=== PATIENT | female | born 1935 | race Hispanic/Latino ===

== ENCOUNTER → 2022-05-13 | Outpatient (CLI) | payer OTHER, MEDICARE | END | disposition home or self-care (01) | LOC: RAH 08:52 | PROVIDERS: ATTEND Internal Medicine Gastroenterology | DX: R13.10 Dysphagia, unspecified (principal); K21.9 Gastro-esophageal reflux disease without esophagitis | CPT/HCPCS: 74240 ==

== ENCOUNTER 2022-07-27 13:08 | Inpatient (IN) | payer OTHER, MEDICARE ==
[~2022-07-27] VITALS: Ht 149.9 cm; Wt 113.2 kg
[2022-07-27 14:38] LABS: BASOPHILS % (AUTO) 0.3 % (0.0-5.0); EOSINOPHILS % (AUTO) 1.1 % (0.0-8.0); LYMPHOCYTES % (AUTO) 11.9 % (21.0-51.0); MEAN CORPUSCULAR HGB CONC 34.3 g/dL (32.0-36.0); MEAN CORPUSCULAR VOLUME 90.4 fL (79-99); MONOCYTES % (AUTO) 10.8 % (3.0-13.0); NEUTROPHILS % (AUTO) 75.6 % (40.0-77.0); PLATELET COUNT (AUTO) 274 K/uL (130-400); RED BLOOD CELL COUNT(AUTO) 3.32 MIL/uL (4.00-5.50); RED CELL DISTRIBUTION WIDTH 13.8 % (11.0-15.5); WHITE BLOOD COUNT (AUTO) 6.4 K/uL (4.8-10.8)
[2022-07-27 14:55] LABS: ALBUMIN 3.8 g/dL (3.5-5.0); CREATININE 0.7 mg/dL (0.5-1.5); POTASSIUM 3.2 mmol/L (3.5-5.1); TOTAL PROTEIN, SERUM 7.5 g/dL (6.0-8.3)
[2022-07-27 16:26] LABS: THYROID STIMULATING HORMONE 1.53 uIU/mL (0.36-3.74)
[2022-07-27 17:17] LABS: APPEARANCE,URINE CLEAR (CLEAR); BILIRUBIN,URINE NEGATIVE (NEGATIVE); COLOR,URINE COLORLESS (YELLOW); GLUCOSE, URINE (UA) NEGATIVE (NEGATIVE); KETONES,URINE 10 mg/dL (NEGATIVE); LEUKOCYTE ESTERASE ,URINE NEGATIVE Leu/uL (NEGATIVE); NITRATE,URINE NEGATIVE (NEGATIVE); OCCULT BLOOD,URINE NEGATIVE (NEGATIVE); PH,URINE 7.5 (5.0-8.0); PROTEIN,URINE 50 mg/dL (NEGATIVE); UROBILINOGEN,URINE 0.2 mg/dL (0.2-1.0)
[2022-07-27 17:20] LABS: WBC,URINE 0-1 /HPF (0-1)
[2022-07-27] MEDS ORDERED: 0.9%NACL 1000ML 1,000 ML IV SCH (18:30)
[2022-07-27] MEDS ORDERED: POTASSIUM CHLORIDE 20 MEQ/100 ML BAG IV SCH (19:00)
[2022-07-27] MEDS ORDERED: MEMA28CA16 PO (19:08)
[2022-07-27] MEDS ORDERED: AMLO-257 PO (19:08)
[2022-07-27] MEDS ORDERED: METF-444 PO (19:08)
[2022-07-27] MEDS ORDERED: MECL-226 PO (19:08)
[2022-07-27] MEDS ORDERED: RANO500T2 PO (19:08)
[2022-07-27] MEDS ORDERED: METO200T49 PO (19:08)
[2022-07-27] MEDS ORDERED: FOLI1 PO (19:08)
[2022-07-27] MEDS ORDERED: OLME40TA18 PO (19:08)
[2022-07-27] MEDS ORDERED: ASPI-1197 PO (19:08)
[2022-07-27] MEDS ORDERED: TOPI25TA48 PO (19:08)
[2022-07-27 21:21] LABS: CREATININE 0.6 mg/dL (0.5-1.5); POTASSIUM 3.5 mmol/L (3.5-5.1)
[2022-07-28] VITALS (7 sets, daily range): BP systolic 115–179; BP diastolic 46–68
[2022-07-28] MEDS: DEXTROSE 5%-WATER 1,000 ML IV SCH ×2 (03:38→22:11)
[2022-07-28] MEDS: INSULIN HUMULIN R 100 UNIT/ML 3ML SQ SCH ×5 (06:00→23:34)
[2022-07-28 06:11] LABS: CREATININE 0.6 mg/dL (0.5-1.5)
[2022-07-28] MEDS: FAMOTIDINE 20MG VIAL IV SCH (10:10)
[2022-07-28 14:57] LABS: CREATININE 0.7 mg/dL (0.5-1.5); POTASSIUM 3.6 mmol/L (3.5-5.1)
[2022-07-28] MEDS ORDERED: LABETALOL 20MG VIAL IV PRN (18:30)
[2022-07-28] MEDS ORDERED: LABETALOL 20MG SYG IV PRN (19:30)
[2022-07-28] MEDS: CLONIDINE 0.2 MG/ 24 HR PATCH TD SCH (22:02)
[2022-07-29 03:27] VITALS: BP 185/51
[2022-07-29] MEDS: INSULIN HUMULIN R 100 UNIT/ML 3ML SQ SCH ×3 (04:58→17:58)
[2022-07-29 05:42] LABS: BASOPHILS % (AUTO) 0.3 % (0.0-5.0); EOSINOPHILS % (AUTO) 1.6 % (0.0-8.0); HEMATOCRIT 28.5 % (36-48); LYMPHOCYTES % (AUTO) 10.1 % (21.0-51.0); MEAN CORPUSCULAR HEMOGLOBIN 31.2 pg (27.0-33.0); MEAN CORPUSCULAR HGB CONC 34.7 g/dL (32.0-36.0); MEAN CORPUSCULAR VOLUME 89.9 fL (79-99); MONOCYTES % (AUTO) 12.8 % (3.0-13.0); NEUTROPHILS % (AUTO) 74.9 % (40.0-77.0); PLATELET COUNT (AUTO) 269 K/uL (130-400); RED BLOOD CELL COUNT(AUTO) 3.17 MIL/uL (4.00-5.50); RED CELL DISTRIBUTION WIDTH 13.6 % (11.0-15.5); WHITE BLOOD COUNT (AUTO) 6.3 K/uL (4.8-10.8)
[2022-07-29 06:10] LABS: CARBON DIOXIDE 26 mmol/L (21-32); CHLORIDE 98 mmol/L (101-111); CREATININE 0.7 mg/dL (0.5-1.5); GLOMERULAR FILTR. RATE CALC 84 mL/min (>60); GLUCOSE,RANDOM 128 mg/dL (70-105); POTASSIUM 3.3 mmol/L (3.5-5.1); SODIUM SERUM 132 mmol/L (136-145); UREA NITROGEN, BLOOD 10 mg/dL (7-18)
[2022-07-29 06:51] LABS: % IRON SATURATION 12.1 % (22-44)
[2022-07-29 08:00] VITALS: BP 171/53
[2022-07-29] MEDS: FAMOTIDINE 20MG VIAL IV SCH (09:46)
[2022-07-29] MEDS: CLONIDINE 0.2 MG/ 24 HR PATCH TD SCH (09:46)
[2022-07-29 12:00] VITALS: BP 176/65
[2022-07-29] MEDS ORDERED: IRON SUCROSE COMPLEX 500 MG in 0.9%NACL 50ML 50 ML IV SCH (13:00)
[2022-07-29] MEDS ORDERED: EPOETIN ALFA-EPBX (NON-ESRD) 10,000 UNIT/ML VIAL SQ SCH (13:00)
[2022-07-29] MEDS ORDERED: LORAZEPAM 2 MG/ML 1 ML VIAL IVP PRN (13:30)
[2022-07-29] MEDS ORDERED: LIDOCAINE HCL-MPF 1% 2ML VIAL IV PRN (13:30)
[2022-07-29] MEDS: POTASSIUM CHLORIDE 20MEQ/100ML 100 ML IV PRN ×2 (14:02→21:43)
[2022-07-29 16:00] VITALS: BP 160/60
[2022-07-29] MEDS: DEXTROSE 5%-WATER 1,000 ML IV SCH (18:01)
[2022-07-29 20:27] VITALS: BP 165/59
[2022-07-30] VITALS (14 sets, daily range): BP systolic 144–178; BP diastolic 54–97
[2022-07-30 03:59] LABS: BASOPHILS % (AUTO) 0.4 % (0.0-5.0); EOSINOPHILS % (AUTO) 0.4 % (0.0-8.0); HEMATOCRIT 29.2 % (36-48); LYMPHOCYTES % (AUTO) 8.9 % (21.0-51.0); MEAN CORPUSCULAR HEMOGLOBIN 31.1 pg (27.0-33.0); MEAN CORPUSCULAR HGB CONC 34.2 g/dL (32.0-36.0); MEAN CORPUSCULAR VOLUME 90.7 fL (79-99); MONOCYTES % (AUTO) 13.3 % (3.0-13.0); NEUTROPHILS % (AUTO) 76.6 % (40.0-77.0); PLATELET COUNT (AUTO) 271 K/uL (130-400); RED BLOOD CELL COUNT(AUTO) 3.22 MIL/uL (4.00-5.50); RED CELL DISTRIBUTION WIDTH 13.6 % (11.0-15.5); WHITE BLOOD COUNT (AUTO) 7.2 K/uL (4.8-10.8)
[2022-07-30 04:30] LABS: CREATININE 0.7 mg/dL (0.5-1.5); POTASSIUM 4.5 mmol/L (3.5-5.1)
[2022-07-30] MEDS: INSULIN HUMULIN R 100 UNIT/ML 3ML SQ SCH ×4 (06:00→17:05)
[2022-07-30] MEDS ORDERED: PROPOFOL 10 MG/ML 20ML VIAL IV ONE (07:01)
[2022-07-30] MEDS ORDERED: GLYCOPYRROLATE 1 MG/5 ML SYRINGE ONE (07:02)
[2022-07-30] MEDS ORDERED: CEFAZOLIN SODIUM 1 GM VIAL ONE (07:31)
[2022-07-30] MEDS ORDERED: ESMOLOL HCL 10 MG/ML 10 ML VIAL ONE (07:38)
[2022-07-30] MEDS: FAMOTIDINE 20MG VIAL IV SCH (08:56)
[2022-07-30] MEDS: CLONIDINE 0.3 MG/ 24 HR PATCH TD SCH (10:09)
[2022-07-30] MEDS: DEXTROSE 5%-WATER 1,000 ML IV SCH ×2 (11:30→22:05)
[2022-07-30] MEDS ORDERED: HYDROMORPHONE 0.5 MG SYG (0.5MG/0.5ML) IVP PRN ×2 (12:30)
[2022-07-30] MEDS ORDERED: EPOETIN ALFA-EPBX (NON-ESRD) 10,000 UNIT/ML VIAL SQ ONE (20:00)
[2022-07-30] MEDS: METOPROLOL SUCCINATE 50 MG TAB.SR.24H PO SCH (22:06)
[2022-07-30] MEDS: AMLODIPINE 5 MG TAB PO SCH (22:06)
[2022-07-30] MEDS: TOPIRAMATE 25 MG TABLET PO SCH (22:06)
[2022-07-30] MEDS: RANOLAZINE 500 MG TAB.SR.12H PO SCH (22:06)
[2022-07-31 04:17] VITALS: BP 149/54
[2022-07-31 05:36] LABS: ALBUMIN 2.9 g/dL (3.5-5.0); CREATININE 0.7 mg/dL (0.5-1.5); POTASSIUM 3.4 mmol/L (3.5-5.1); TOTAL PROTEIN, SERUM 6.3 g/dL (6.0-8.3)
[2022-07-31 05:37] LABS: % IRON SATURATION 7.3 % (22-44)
[2022-07-31] MEDS: INSULIN HUMULIN R 100 UNIT/ML 3ML SQ SCH ×4 (06:00→18:00)
[2022-07-31 08:00] VITALS: BP 149/52
[2022-07-31] MEDS: MEMANTINE HCL 5 MG TABLET PO SCH ×2 (09:23→21:19)
[2022-07-31] MEDS: FAMOTIDINE 20MG VIAL IV SCH (09:23)
[2022-07-31] MEDS: RANOLAZINE 500 MG TAB.SR.12H PO SCH ×2 (09:23→21:22)
[2022-07-31] MEDS: TOPIRAMATE 25 MG TABLET PO SCH ×2 (09:23→21:19)
[2022-07-31] MEDS: LOSARTAN 100 MG TABLET PO SCH (09:23)
[2022-07-31] MEDS: AMLODIPINE 5 MG TAB PO SCH ×2 (09:23→21:22)
[2022-07-31] MEDS: METOPROLOL SUCCINATE 50 MG TAB.SR.24H PO SCH ×2 (09:24→21:19)
[2022-07-31] MEDS: CLONIDINE 0.3 MG/ 24 HR PATCH TD SCH (10:34)
[2022-07-31 12:00] VITALS: BP 154/50
[2022-07-31 16:00] VITALS: BP_SYST 126; BP_SYST 160; BP_DIAS 50; BP_DIAS 76
[2022-07-31] MEDS ORDERED: POTASSIUM CHLORIDE 20MEQ/100ML 100 ML IV PRN (16:30)
[2022-07-31] MEDS ORDERED: KCL 20 MEQ ERTAB PO PRN (16:30)
[2022-07-31] MEDS ORDERED: LIDOCAINE HCL-MPF 1% 2ML VIAL IV PRN (16:30)
[2022-07-31] MEDS ORDERED: POTASSIUM CHLORIDE 10% ELIXIR 20 MEQ/15 ML UDCUP PO PRN (16:30)
[2022-07-31 16:40] LABS: BASOPHILS % (AUTO) 0.2 % (0.0-5.0); EOSINOPHILS % (AUTO) 1.7 % (0.0-8.0); LYMPHOCYTES % (AUTO) 3.9 % (21.0-51.0); MEAN CORPUSCULAR HGB CONC 34.3 g/dL (32.0-36.0); MEAN CORPUSCULAR VOLUME 90.4 fL (79-99); MONOCYTES % (AUTO) 6.5 % (3.0-13.0); NEUTROPHILS % (AUTO) 87.3 % (40.0-77.0); PLATELET COUNT (AUTO) 249 K/uL (130-400); RED BLOOD CELL COUNT(AUTO) 3.32 MIL/uL (4.00-5.50); RED CELL DISTRIBUTION WIDTH 13.8 % (11.0-15.5); WHITE BLOOD COUNT (AUTO) 16.4 K/uL (4.8-10.8)
[2022-07-31] MEDS ORDERED: IRON SUCROSE COMPLEX 500 MG in 0.9% NACL 250ML 250 ML IV ONE (16:45)
[2022-07-31 16:54] LABS: CREATININE 0.6 mg/dL (0.5-1.5); POTASSIUM 3.6 mmol/L (3.5-5.1)
[2022-07-31 17:53] LABS: APPEARANCE,URINE CLEAR (CLEAR); BILIRUBIN,URINE NEGATIVE (NEGATIVE); COLOR,URINE LIGHT-YELLOW (YELLOW); GLUCOSE, URINE (UA) NEGATIVE (NEGATIVE); KETONES,URINE NEGATIVE (NEGATIVE); LEUKOCYTE ESTERASE ,URINE NEGATIVE Leu/uL (NEGATIVE); NITRATE,URINE NEGATIVE (NEGATIVE); OCCULT BLOOD,URINE NEGATIVE (NEGATIVE); PROTEIN,URINE NEGATIVE (NEGATIVE); UROBILINOGEN,URINE 0.2 mg/dL (0.2-1.0)
[2022-07-31 17:57] LABS: BACTERIA,URINE RARE /HPF (None Seen); MUCUS,URINE RARE LPF (None Seen); RBC,URINE 0-1 /HPF (0-1); SQUAMOUS EPITHELIAL CELL,UR RARE /HPF (0-2); WBC,URINE 0-1 /HPF (0-1)
[2022-07-31 20:17] VITALS: BP 154/60
[2022-07-31] MEDS: FAMOTIDINE 20MG TAB PEG SCH (21:19)
[2022-07-31] MEDS: MINOXIDIL 2.5 MG TAB PO SCH (21:19)
[2022-08-01] VITALS (7 sets, daily range): BP systolic 117–151; BP diastolic 40–66
[2022-08-01 04:38] LABS: BASOPHILS % (AUTO) 0.2 % (0.0-5.0); EOSINOPHILS % (AUTO) 0.9 % (0.0-8.0); HEMATOCRIT 29.9 % (36-48); LYMPHOCYTES % (AUTO) 3.7 % (21.0-51.0); MEAN CORPUSCULAR HEMOGLOBIN 30.9 pg (27.0-33.0); MEAN CORPUSCULAR HGB CONC 34.1 g/dL (32.0-36.0); MEAN CORPUSCULAR VOLUME 90.6 fL (79-99); MONOCYTES % (AUTO) 6.9 % (3.0-13.0); NEUTROPHILS % (AUTO) 87.6 % (40.0-77.0); PLATELET COUNT (AUTO) 259 K/uL (130-400); WHITE BLOOD COUNT (AUTO) 16.2 K/uL (4.8-10.8)
[2022-08-01 04:57] LABS: CREATININE 0.7 mg/dL (0.5-1.5); MAGNESIUM 1.7 mg/dL (1.80-2.40); PHOSPHORUS 2.7 mg/dL (2.5-4.9); POTASSIUM 3.8 mmol/L (3.5-5.1)
[2022-08-01] MEDS: INSULIN HUMULIN R 100 UNIT/ML 3ML SQ SCH ×4 (06:00→18:00)
[2022-08-01] MEDS: AMLODIPINE 5 MG TAB PO SCH ×2 (09:12→21:17)
[2022-08-01] MEDS: LOSARTAN 100 MG TABLET PO SCH (09:12)
[2022-08-01] MEDS: TOPIRAMATE 25 MG TABLET PO SCH ×2 (09:13→21:17)
[2022-08-01] MEDS: METOPROLOL SUCCINATE 50 MG TAB.SR.24H PO SCH ×2 (09:13→21:17)
[2022-08-01] MEDS: MINOXIDIL 2.5 MG TAB PO SCH ×2 (09:13→21:17)
[2022-08-01] MEDS: RANOLAZINE 500 MG TAB.SR.12H PO SCH ×2 (09:13→21:17)
[2022-08-01] MEDS: MEMANTINE HCL 5 MG TABLET PO SCH ×2 (09:13→21:17)
[2022-08-01] MEDS ORDERED: METO50TA9 PO (15:44)
[2022-08-01] MEDS ORDERED: MINO2.5 PO (15:44)
[2022-08-01] MEDS ORDERED: RENAL DOSE IV SCH (17:00)
[2022-08-01] MEDS ORDERED: CEFAZOLIN SODIUM 2 GM VIAL ONE (17:45)
[2022-08-01] MEDS: CEFAZOLIN SODIUM 2 GM VIAL IVP SCH (18:29)
[2022-08-01] MEDS: FAMOTIDINE 20MG TAB PEG SCH (21:17)
[2022-08-02] MEDS: CEFAZOLIN SODIUM 2 GM VIAL IVP SCH ×4 (02:10→23:54)
[2022-08-02 03:41] VITALS: BP 121/49
[2022-08-02 04:27] LABS: BASOPHILS % (AUTO) 0.3 % (0.0-5.0); EOSINOPHILS % (AUTO) 1.3 % (0.0-8.0); HEMATOCRIT 27.9 % (36-48); LYMPHOCYTES % (AUTO) 5.6 % (21.0-51.0); MEAN CORPUSCULAR HEMOGLOBIN 31.1 pg (27.0-33.0); MEAN CORPUSCULAR HGB CONC 34.1 g/dL (32.0-36.0); MEAN CORPUSCULAR VOLUME 91.5 fL (79-99); MONOCYTES % (AUTO) 8.4 % (3.0-13.0); NEUTROPHILS % (AUTO) 83.6 % (40.0-77.0); NUCLEATED RED BLOOD CELLS 0.1 % (0.0-0.19); PLATELET COUNT (AUTO) 264 K/uL (130-400); RED BLOOD CELL COUNT(AUTO) 3.05 MIL/uL (4.00-5.50); RED CELL DISTRIBUTION WIDTH 14.2 % (11.0-15.5); WHITE BLOOD COUNT (AUTO) 15.2 K/uL (4.8-10.8)
[2022-08-02 04:34] LABS: CREATININE 0.9 mg/dL (0.5-1.5); CRP QUANTITATIVE 112.7 mg/L (0.00-9.0); POTASSIUM 3.9 mmol/L (3.5-5.1)
[2022-08-02] MEDS: INSULIN HUMULIN R 100 UNIT/ML 3ML SQ SCH ×5 (06:00→23:54)
[2022-08-02 06:27] LABS: ERYTHROCYTE SEDIMENTATION RATE 56 MM/HR (0-30)
[2022-08-02 08:44] VITALS: BP 122/47
[2022-08-02] MEDS: AMLODIPINE 5 MG TAB PO SCH ×2 (09:00→21:32)
[2022-08-02] MEDS: LOSARTAN 100 MG TABLET PO SCH (09:00)
[2022-08-02] MEDS: MEMANTINE HCL 5 MG TABLET PO SCH ×2 (10:36→21:33)
[2022-08-02] MEDS: MINOXIDIL 2.5 MG TAB PO SCH ×2 (10:36→21:32)
[2022-08-02] MEDS: RANOLAZINE 500 MG TAB.SR.12H PO SCH ×2 (10:36→21:33)
[2022-08-02] MEDS: TOPIRAMATE 25 MG TABLET PO SCH ×2 (10:37→21:38)
[2022-08-02] MEDS: METOPROLOL SUCCINATE 50 MG TAB.SR.24H PO SCH ×2 (10:40→21:32)
[2022-08-02 12:22] VITALS: BP 130/45
[2022-08-02] MEDS: ZYVOX 600 MG TAB PEG SCH (16:32)
[2022-08-02 16:47] VITALS: BP 122/49
[2022-08-02 20:00] VITALS: BP 134/54
[2022-08-02] MEDS: FAMOTIDINE 20MG TAB PEG SCH (21:32)
[2022-08-03] VITALS: BP 123/51
[2022-08-03 04:00] VITALS: BP 128/46
[2022-08-03] MEDS: INSULIN HUMULIN R 100 UNIT/ML 3ML SQ SCH ×3 (05:14→18:00)
[2022-08-03] MEDS: ZYVOX 600 MG TAB PEG SCH ×2 (05:58→15:47)
[2022-08-03 08:00] VITALS: BP 127/48
[2022-08-03] MEDS: CEFAZOLIN SODIUM 2 GM VIAL IVP SCH ×2 (08:43→15:47)
[2022-08-03] MEDS: MINOXIDIL 2.5 MG TAB PO SCH ×2 (08:44→21:43)
[2022-08-03] MEDS: METOPROLOL SUCCINATE 50 MG TAB.SR.24H PO SCH ×2 (08:44→21:43)
[2022-08-03] MEDS: LOSARTAN 100 MG TABLET PO SCH (08:44)
[2022-08-03] MEDS: RANOLAZINE 500 MG TAB.SR.12H PO SCH ×2 (08:44→21:43)
[2022-08-03] MEDS: MEMANTINE HCL 5 MG TABLET PO SCH ×2 (08:45→21:43)
[2022-08-03] MEDS: TOPIRAMATE 25 MG TABLET PO SCH ×2 (08:45→21:43)
[2022-08-03] MEDS: AMLODIPINE 5 MG TAB PO SCH ×2 (08:45→21:43)
[2022-08-03 09:33] LABS: BASOPHILS % (AUTO) 0.4 % (0.0-5.0); EOSINOPHILS % (AUTO) 2.9 % (0.0-8.0); HEMATOCRIT 28.6 % (36-48); MEAN CORPUSCULAR HEMOGLOBIN 31.7 pg (27.0-33.0); MEAN CORPUSCULAR HGB CONC 33.9 g/dL (32.0-36.0); MEAN CORPUSCULAR VOLUME 93.5 fL (79-99); MONOCYTES % (AUTO) 9.9 % (3.0-13.0); PLATELET COUNT (AUTO) 298 K/uL (130-400); RED BLOOD CELL COUNT(AUTO) 3.06 MIL/uL (4.00-5.50); RED CELL DISTRIBUTION WIDTH 14.6 % (11.0-15.5); WHITE BLOOD COUNT (AUTO) 10.3 K/uL (4.8-10.8)
[2022-08-03 11:28] LABS: CREATININE 0.9 mg/dL (0.5-1.5); POTASSIUM 4.6 mmol/L (3.5-5.1)
[2022-08-03 12:00] VITALS: BP 110/41
[2022-08-03 20:00] VITALS: BP 143/54
[2022-08-03] MEDS ORDERED: APIXABAN 5 MG TABLET PO SCH (21:00)
[2022-08-03] MEDS: FAMOTIDINE 20MG TAB PEG SCH (21:44)
[2022-08-03] MEDS ORDERED: ENOXAPARIN SODIUM 40 MG/0.4 ML SYRINGE SQ ONE (22:00)
[2022-08-04] VITALS (7 sets, daily range): BP systolic 113–144; BP diastolic 47–57
[2022-08-04] MEDS ORDERED: HEPARIN 25,000 UNITS/250ML D5W 250 ML IV SCH
[2022-08-04] MEDS: INSULIN HUMULIN R 100 UNIT/ML 3ML SQ SCH ×4 (00:53→16:38)
[2022-08-04] MEDS: CEFAZOLIN SODIUM 2 GM VIAL IVP SCH ×3 (00:54→17:01)
[2022-08-04] MEDS: ZYVOX 600 MG TAB PEG SCH ×2 (06:20→17:01)
[2022-08-04 08:44] LABS: BASOPHILS % (AUTO) 0.3 % (0.0-5.0); EOSINOPHILS % (AUTO) 2.1 % (0.0-8.0); HEMATOCRIT 29.6 % (36-48); LYMPHOCYTES % (AUTO) 5.8 % (21.0-51.0); MEAN CORPUSCULAR HEMOGLOBIN 31.3 pg (27.0-33.0); MEAN CORPUSCULAR HGB CONC 33.1 g/dL (32.0-36.0); MEAN CORPUSCULAR VOLUME 94.6 fL (79-99); MONOCYTES % (AUTO) 11.9 % (3.0-13.0); NEUTROPHILS % (AUTO) 78.8 % (40.0-77.0); PLATELET COUNT (AUTO) 316 K/uL (130-400); RED BLOOD CELL COUNT(AUTO) 3.13 MIL/uL (4.00-5.50); RED CELL DISTRIBUTION WIDTH 14.9 % (11.0-15.5); WHITE BLOOD COUNT (AUTO) 9.1 K/uL (4.8-10.8)
[2022-08-04] MEDS: TOPIRAMATE 25 MG TABLET PO SCH ×2 (09:00→21:25)
[2022-08-04] MEDS ORDERED: ENOXAPARIN SODIUM 40 MG/0.4 ML SYRINGE SQ SCH (09:00)
[2022-08-04] MEDS ORDERED: ENOXAPARIN SODIUM 120 MG/0.8ML SQ SCH (09:00)
[2022-08-04 09:23] LABS: ALBUMIN 2.5 g/dL (3.5-5.0); CREATININE 0.9 mg/dL (0.5-1.5); MAGNESIUM 1.9 mg/dL (1.80-2.40); POTASSIUM 4.3 mmol/L (3.5-5.1); TOTAL PROTEIN, SERUM 6.2 g/dL (6.0-8.3)
[2022-08-04] MEDS: AMLODIPINE 5 MG TAB PO SCH ×2 (09:43→21:25)
[2022-08-04] MEDS: MINOXIDIL 2.5 MG TAB PO SCH ×2 (09:43→21:25)
[2022-08-04] MEDS: RANOLAZINE 500 MG TAB.SR.12H PO SCH ×2 (09:43→21:25)
[2022-08-04] MEDS: METOPROLOL SUCCINATE 50 MG TAB.SR.24H PO SCH ×2 (09:43→21:25)
[2022-08-04] MEDS: LOSARTAN 100 MG TABLET PO SCH (09:43)
[2022-08-04] MEDS: MEMANTINE HCL 5 MG TABLET PO SCH ×2 (09:44→21:25)
[2022-08-04] MEDS: FAMOTIDINE 20MG TAB PEG SCH (21:25)
[2022-08-04] MEDS: APIXABAN 2.5 MG TABLET PO SCH (21:25)
[2022-08-04] MEDS: LOPERAMIDE HCL 2 MG CAP PO PRN (23:43)
[2022-08-05] MEDS: INSULIN HUMULIN R 100 UNIT/ML 3ML SQ SCH ×4 (00:55→18:00)
[2022-08-05 04:26] VITALS: BP 132/50
[2022-08-05 04:44] LABS: BASOPHILS % (AUTO) 0.5 % (0.0-5.0); HEMATOCRIT 28.3 % (36-48); LYMPHOCYTES % (AUTO) 7.2 % (21.0-51.0); MEAN CORPUSCULAR HGB CONC 32.9 g/dL (32.0-36.0); MEAN CORPUSCULAR VOLUME 94.3 fL (79-99); MONOCYTES % (AUTO) 13.8 % (3.0-13.0); NEUTROPHILS % (AUTO) 75.6 % (40.0-77.0); NUCLEATED RED BLOOD CELLS 0.3 % (0.0-0.19); PLATELET COUNT (AUTO) 309 K/uL (130-400); RED CELL DISTRIBUTION WIDTH 15.2 % (11.0-15.5); WHITE BLOOD COUNT (AUTO) 7.6 K/uL (4.8-10.8)
[2022-08-05 05:01] LABS: CREATININE 0.7 mg/dL (0.5-1.5); MAGNESIUM 1.9 mg/dL (1.80-2.40); POTASSIUM 4.1 mmol/L (3.5-5.1)
[2022-08-05] MEDS: ZYVOX 600 MG TAB PEG SCH ×2 (06:22→18:52)
[2022-08-05 08:15] VITALS: BP 132/47
[2022-08-05] MEDS: METOPROLOL SUCCINATE 50 MG TAB.SR.24H PO SCH ×2 (09:20→21:41)
[2022-08-05] MEDS: RANOLAZINE 500 MG TAB.SR.12H PO SCH ×2 (09:20→21:41)
[2022-08-05] MEDS: MEMANTINE HCL 5 MG TABLET PO SCH ×2 (09:20→21:41)
[2022-08-05] MEDS: TOPIRAMATE 25 MG TABLET PO SCH ×2 (09:20→21:41)
[2022-08-05] MEDS: APIXABAN 2.5 MG TABLET PO SCH ×2 (09:20→21:41)
[2022-08-05] MEDS: LOPERAMIDE HCL 2 MG CAP PO PRN ×2 (09:21→18:56)
[2022-08-05] MEDS: MINOXIDIL 2.5 MG TAB PO SCH ×3 (11:28→21:41)
[2022-08-05] MEDS: AMLODIPINE 5 MG TAB PO SCH ×2 (11:28→21:41)
[2022-08-05] MEDS: LOSARTAN 100 MG TABLET PO SCH (11:30)
[2022-08-05 11:31] VITALS: BP 124/43
[2022-08-05 16:00] VITALS: BP 124/66
[2022-08-05 20:48] VITALS: BP 142/55
[2022-08-05] MEDS: FAMOTIDINE 20MG TAB PEG SCH (21:41)
[2022-08-06] VITALS (7 sets, daily range): BP systolic 117–143; BP diastolic 34–50
[2022-08-06] MEDS: INSULIN HUMULIN R 100 UNIT/ML 3ML SQ SCH ×4 (05:29→17:04)
[2022-08-06] MEDS: ZYVOX 600 MG TAB PEG SCH ×2 (05:34→19:43)
[2022-08-06] MEDS: TOPIRAMATE 25 MG TABLET PO SCH ×2 (08:27→20:42)
[2022-08-06] MEDS: APIXABAN 2.5 MG TABLET PO SCH ×2 (08:27→20:42)
[2022-08-06] MEDS: LOSARTAN 100 MG TABLET PO SCH (08:27)
[2022-08-06] MEDS: RANOLAZINE 500 MG TAB.SR.12H PO SCH ×2 (08:27→20:42)
[2022-08-06] MEDS: MINOXIDIL 2.5 MG TAB PO SCH ×2 (08:27→20:42)
[2022-08-06] MEDS: MEMANTINE HCL 5 MG TABLET PO SCH ×2 (08:27→20:59)
[2022-08-06] MEDS: METOPROLOL SUCCINATE 50 MG TAB.SR.24H PO SCH ×2 (08:28→20:59)
[2022-08-06] MEDS: AMLODIPINE 5 MG TAB PO SCH ×2 (08:28→20:42)
[2022-08-06] MEDS: FAMOTIDINE 20MG TAB PEG SCH (20:42)
[2022-08-07 04:00] VITALS: BP 130/54
[2022-08-07] MEDS: ZYVOX 600 MG TAB PEG SCH ×2 (05:35→18:53)
[2022-08-07] MEDS: INSULIN HUMULIN R 100 UNIT/ML 3ML SQ SCH ×4 (06:00→17:47)
[2022-08-07 07:30] VITALS: BP 147/51
[2022-08-07] MEDS: AMLODIPINE 5 MG TAB PO SCH ×2 (08:55→21:29)
[2022-08-07] MEDS: LOPERAMIDE HCL 2 MG CAP PO PRN ×2 (08:56→15:47)
[2022-08-07] MEDS: MEMANTINE HCL 5 MG TABLET PO SCH ×2 (08:56→21:30)
[2022-08-07] MEDS: METOPROLOL SUCCINATE 50 MG TAB.SR.24H PO SCH ×2 (08:56→21:29)
[2022-08-07] MEDS: LOSARTAN 100 MG TABLET PO SCH (08:56)
[2022-08-07] MEDS: RANOLAZINE 500 MG TAB.SR.12H PO SCH ×2 (08:56→21:29)
[2022-08-07] MEDS: TOPIRAMATE 25 MG TABLET PO SCH ×2 (08:57→21:29)
[2022-08-07] MEDS: MINOXIDIL 2.5 MG TAB PO SCH ×2 (08:57→21:29)
[2022-08-07] MEDS: APIXABAN 2.5 MG TABLET PO SCH ×2 (08:57→21:29)
[2022-08-07 12:00] VITALS: BP 127/42
[2022-08-07 16:00] VITALS: BP 146/50
[2022-08-07 20:08] VITALS: BP 148/59
[2022-08-07] MEDS: FAMOTIDINE 20MG TAB PEG SCH (21:29)
[2022-08-08 00:08] VITALS: BP 129/44
[2022-08-08 04:01] VITALS: BP 131/50
[2022-08-08] MEDS: ZYVOX 600 MG TAB PEG SCH (05:43)
[2022-08-08 08:00] VITALS: BP 140/41
[2022-08-08] MEDS: APIXABAN 2.5 MG TABLET PO SCH (08:43)
[2022-08-08] MEDS: MINOXIDIL 2.5 MG TAB PO SCH (08:44)
[2022-08-08] MEDS: RANOLAZINE 500 MG TAB.SR.12H PO SCH (08:44)
[2022-08-08] MEDS: MEMANTINE HCL 5 MG TABLET PO SCH (08:44)
[2022-08-08] MEDS: TOPIRAMATE 25 MG TABLET PO SCH (08:44)
[2022-08-08] MEDS: METOPROLOL SUCCINATE 50 MG TAB.SR.24H PO SCH (08:45)
[2022-08-08] MEDS: AMLODIPINE 5 MG TAB PO SCH ×2 (09:00→13:40)
[2022-08-08] MEDS: LOSARTAN 100 MG TABLET PO SCH ×2 (09:00→13:41)
[2022-08-08 11:56] VITALS: BP 149/59
[2022-08-08] MEDS: INSULIN HUMULIN R 100 UNIT/ML 3ML SQ SCH ×2 (12:00)
[2022-08-08 12:52] LABS: BASOPHILS % (AUTO) 0.5 % (0.0-5.0); EOSINOPHILS % (AUTO) 0.5 % (0.0-8.0); HEMATOCRIT 30.6 % (36-48); LYMPHOCYTES % (AUTO) 9.3 % (21.0-51.0); MEAN CORPUSCULAR HEMOGLOBIN 31.2 pg (27.0-33.0); MEAN CORPUSCULAR HGB CONC 32.4 g/dL (32.0-36.0); MEAN CORPUSCULAR VOLUME 96.5 fL (79-99); MONOCYTES % (AUTO) 7.8 % (3.0-13.0); NEUTROPHILS % (AUTO) 81.4 % (40.0-77.0); PLATELET COUNT (AUTO) 302 K/uL (130-400); RED BLOOD CELL COUNT(AUTO) 3.17 MIL/uL (4.00-5.50); RED CELL DISTRIBUTION WIDTH 15.1 % (11.0-15.5)
[2022-08-08] MEDS ORDERED: LOSA100T2 PO (13:02)
[2022-08-08] MEDS ORDERED: LINE600T11 PEG (13:02)
[2022-08-08] MEDS ORDERED: APIX2.5T PO (13:02)
[2022-08-08 13:12] LABS: CREATININE 0.8 mg/dL (0.5-1.5); POTASSIUM 4.5 mmol/L (3.5-5.1)
[2022-08-08 13:16] LABS: % IRON SATURATION 34.8 % (22-44)
[2022-08-08 16:00] VITALS: BP 165/68
== END 2022-08-08 17:28 | disposition home or self-care (01) | DRG 392 ==
LOC: EDH 13:08 → EDHIP 18:25 → OBSVTOIN 18:25 → INTOOBSV 18:25 → 4BH 23:42
PROVIDERS: ADMIT Internal Medicine; ATTEND Internal Medicine
PROC: 0DJ08ZZ Inspection of Upper Intestinal Tract, Via Natural or Artificial Opening Endoscopic (ICD-10-PCS; principal; 2022-07-30)
PROC: 0DH63UZ Insertion of Feeding Device into Stomach, Percutaneous Approach (ICD-10-PCS; 2022-07-30)
DX: K22.2 Esophageal obstruction (principal); E87.1 Hypo-osmolality and hyponatremia; Z68.43 Body mass index [BMI] 50.0-59.9, adult; L03.114 Cellulitis of left upper limb; I82.613 Acute embolism and thrombosis of superficial veins of upper extremity, bilateral; Z20.822 Contact with and (suspected) exposure to COVID-19; E87.6 Hypokalemia; I80.8 Phlebitis and thrombophlebitis of other sites; E11.9 Type 2 diabetes mellitus without complications; E66.9 Obesity, unspecified; E86.0 Dehydration; E89.0 Postprocedural hypothyroidism; I10 Essential (primary) hypertension; K21.9 Gastro-esophageal reflux disease without esophagitis; Z79.01 Long term (current) use of anticoagulants; Z79.82 Long term (current) use of aspirin; Z90.710 Acquired absence of both cervix and uterus; Z83.3 Family history of diabetes mellitus; Z93.1 Gastrostomy status
CPT/HCPCS: 36415; 43246; 71045; 80048; 80053; 81001; 82607; 82728; 82746; 82948; 83540; 83550; 83735; 83880; 83930; 83935; 84100; 84145; 84300; 84443; 85025; 85045; 85651; 86140; 87088; 87635; 93005; 93971; 97039; G0378; J0690; J1170; J1650; J1756; J1815; J2060; J2704; J3480; J3490; J7030; J7050; J7070

== ENCOUNTER → 2022-11-27 | Outpatient (CLI) | payer OTHER, MEDICARE ==
[~2022-11-27] MED LIST: AMLO-257 PO; APIX2.5T PO; ASPI-1197 PO; FOLI1 PO; LINE600T11 PEG; LOSA100T2 PO; MECL-226 PO; MEMA28CA16 PO; METF-444 PO; METO50TA9 PO; MINO2.5 PO; RANO500T2 PO; TOPI25TA48 PO
== END | disposition home or self-care (01) ==
LOC: RAH 12:52
PROVIDERS: ATTEND Internal Medicine Gastroenterology
DX: R13.10 Dysphagia, unspecified (principal); R63.30 Feeding difficulties, unspecified
CPT/HCPCS: 74230; 92611